=== PATIENT | female | born 1990 | race African-American/Black ===

== ENCOUNTER 2022-05-29 08:57 | Emergency (ER) | payer SELFPAY ==
[~2022-05-29] VITALS: Ht 172.7 cm; Wt 59.0 kg
--- NOTE | 2022-05-29 08:58 | NUR ---
EKATERINA AGUILAR, VIA [facility], ACCOMPANIED BY [facility].
[2022-05-29 08:59] VITALS: BP 134/92
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
--- NOTE | 2022-05-29 09:03 | NUR ---
DR PARK AT BEDSIDE EVALUATING PT
--- NOTE | 2022-05-29 10:24 | NUR ---
PATIENT [facility] POLICE DEPT. PATIENT EXAMINED BY DR. PARK. PATIENT MEDICALLY CLEARED AND RELEASED IN CUSTODY IN STABLE CONDITION. ORIGINAL PRE-BOOK FORM GIVEN TO OFFICER JORDON #[id number].
== END 2022-05-29 10:24 ==
LOC: MED 08:57
DX: O26.891 Other specified pregnancy related conditions, first trimester (principal); R10.9 Unspecified abdominal pain; Z02.89 Encounter for other administrative examinations; Z3A.08 8 weeks gestation of pregnancy
CPT/HCPCS: 99283

== ENCOUNTER 2023-01-05 12:38 | Emergency (ER) | payer OTHER ==
[~2023-01-05] VITALS: Ht 162.6 cm; Wt 69.4 kg
[2023-01-05 12:47] VITALS: BP 137/144
[2023-01-05] MEDS ORDERED: IBUPROFEN 800 MG TAB PO ONE (14:45)
[2023-01-05 15:40] VITALS: BP 145/82
--- NOTE | 2023-01-05 15:40 | NUR ---
Patient discharged with v/s stable. Written and verbal after care instructions given and explained. Patient verbalized understanding. Ambulatory with [facility]. All questions addressed prior to discharge. Advised to follow up with PMD.
== END 2023-01-05 15:40 | disposition home or self-care (01) ==
LOC: MED 12:38
DX: S92.424A Nondisplaced fracture of distal phalanx of right great toe, initial encounter for closed fracture (principal); R03.0 Elevated blood-pressure reading, without diagnosis of hypertension; J45.909 Unspecified asthma, uncomplicated; W52.XXXA Crushed, pushed or stepped on by crowd or human stampede, initial encounter; Y93.89 Activity, other specified; Y92.89 Other specified places as the place of occurrence of the external cause; Y99.8 Other external cause status
CPT/HCPCS: 29515; 73660; 99283